=== PATIENT | female | born 1970 | race African-American/Black ===

== ENCOUNTER 2020-01-15 20:46 | Emergency (ER) | payer MEDICAID ==
[~2020-01-15] VITALS: Ht 177.8 cm; Wt 93.0 kg
[2020-01-15 21:08] VITALS: BP 149/89
[2020-01-15] MEDS ORDERED: TETANUS, DIPHTHERIA, PERTUSSIS VAC/PF 0.5ML (>7YR OLD) IM ONE (23:00)
[2020-01-15] MEDS ORDERED: BACITRACIN ZINC OINT UDPKT TOP ONE (23:00)
[2020-01-15] MEDS ORDERED: LIDOCAINE HCL/PF 1% 10 MG/ML 5ML VIAL IJ ONE (23:00)
[2020-01-16] MEDS ORDERED: IBUPROFEN 600MG TABLET PO ONE (01:00)
== END 2020-01-16 02:28 | disposition home or self-care (01) ==
LOC: ER 20:46
DX: S91.311A Laceration without foreign body, right foot, initial encounter (principal); M25.552 Pain in left hip; M25.551 Pain in right hip; E11.9 Type 2 diabetes mellitus without complications; Z98.51 Tubal ligation status; Z90.89 Acquired absence of other organs; W01.110A Fall on same level from slipping, tripping and stumbling with subsequent striking against sharp glass, initial encounter; Y93.89 Activity, other specified; Y92.018 Other place in single-family (private) house as the place of occurrence of the external cause
CPT/HCPCS: 12002; 73030; 73521; 73630; 81025; 99284; J3490; Z7610